=== PATIENT | female | born 1955 | race Caucasian/White ===

== ENCOUNTER → 2016-12-07 | Outpatient (CLI) | payer OTHER ==
[~2016-12-07] VITALS: Ht 167.6 cm; Wt 61.1 kg
[~2016-12-07] MED LIST: ASPI81TA11 PO; ATOR20TA15 PO; BENA20TA3 PO; NITR1SUB3 SL; OMEP20TA PO; PARO10TA2 PO; PROPOFOL 200 MG/20 ML AMP IV ONE
[2016-12-07 10:04] VITALS: BP 144/84; PULSE 70; RESP 16; TEMP 97.1; O2SAT 100
[2016-12-07 11:30] VITALS: BP 158/88; PULSE 73; RESP 16; O2SAT 100
--- NOTE | 2016-12-07 12:49 | EKG ---
Date Performed: 12/07/2016 Time Performed: 10:14:07 PTAGE: 61 years EKG: Sinus rhythm NONSPECIFIC T-WAVE ABNORMALITY BORDERLINE ECG NO PREVIOUS TRACING DOCTOR: Ethan Finley Interpretating Date/Time 12/07/2016 12:48:01
== END ==
LOC: HEND 09:16
PROVIDERS: ATTEND Internal Medicine Gastroenterology
DX: K29.70 Gastritis, unspecified, without bleeding (principal); K44.9 Diaphragmatic hernia without obstruction or gangrene; K57.30 Diverticulosis of large intestine without perforation or abscess without bleeding; R11.0 Nausea; R19.7 Diarrhea, unspecified; K63.5 Polyp of colon; K62.1 Rectal polyp; K64.8 Other hemorrhoids; K64.4 Residual hemorrhoidal skin tags; I10 Essential (primary) hypertension
CPT/HCPCS: 88305; 88312; 93005

== ENCOUNTER 2018-01-27 10:05 | Emergency (ER) | payer OTHER ==
[~2018-01-27] VITALS: Ht 167.6 cm; Wt 60.0 kg
[~2018-01-27 10:05] MED LIST changes: -ASPI81TA11 PO; +ASPI81TA23 PO; -NITR1SUB3 SL; -OMEP20TA PO; +OMEP20TA93 PO; -PROPOFOL 200 MG/20 ML AMP IV ONE
[2018-01-27 10:15] VITALS: BP 133/63; PULSE 65; RESP 16; TEMP 98.4; O2SAT 99
--- NOTE | 2018-01-27 11:12 | PD ---
HPI Chief Complaint: Injury Time Seen by Provider: 10:49 Travel History International Travel<30 days: No Contact w/Intl Traveler<30days: No Traveled to known affect area: No History of Present Illness HPI 62-year-old female with history of CVA with left-sided weakness, presents emergency department status post fall from tripping with injury to the left proximal forearm. Patient states she normally has decreased range of motion in this arm secondary to her stroke. She is now complaining of pain, and is concerned about possible fracture. Patient states no numbness or tingling in the distal extremity which is normally normal for her. Pain is currently 8 out of 10 and worse with movement. She denies any other injury currently. She has no known drug allergies. PFSH Past Medical History Hx Anticoagulant Therapy: Yes Cancer: No Cardiovascular Problems: Yes (HYPERCHOLESTEROLEMIA) Cerebrovascular Accident: Yes Diabetes: No Endocrine: No Genitourinary: No Hepatitis: No Hiatal Hernia: No Immune Disorder: No Musculoskeletal: No Neurologic: Yes (STROKE- LEFT ARM PARALYZED) Psychiatric: No Reproductive: No Respiratory: No Thyroid Disease: No Past Surgical History Abdominal Surgery: No AICD: No Cardiac Surgery: No Ear Surgery: No Endocrine Surgery: No Eye Surgery: No Genitourinary Surgery: No Gynecologic Surgery: Yes (HYSTERECTOMY) Joint Replacement: No Oral Surgery: No Pacemaker: No Thoracic Surgery: No Social History Alcohol Use: Yes Tobacco Use: No Substance Use: No Allergies-Medications (Allergen,Severity, Reaction): Coded Allergies: No Known Allergies (Unverified , 12/07/16) Reported Meds & Prescriptions Reported Meds & Active Scripts Active Tramadol (Tramadol HCl) 50 Mg Tab 50 Mg PO Q6H PRN Reported Ibgard (Peppermint Oil) 90 Mg Capdr...er DAILY Paroxetine (Paroxetine HCl) 10 Mg Tab 10 Mg PO DAILY Benazepril-Hydrochlorothiazide 20-12.5 Mg Tab 1 Tab PO DAILY Atorvastatin (Atorvastatin Calcium) 20 Mg Tab 20 Mg PO HS Aspirin EC (Aspirin) 81 Mg Tabdr 81 Mg PO DAILY Review of Systems Except as stated in HPI: all other systems reviewed are Neg General / Constitutional: No: Fever Eyes: No: Visual changes HENT: No: Headaches Cardiovascular: No: Chest Pain or Discomfort Respiratory: No: Shortness of Breath Gastrointestinal: No: Abdominal Pain Genitourinary: No: Dysuria Musculoskeletal: Positive: Myalgias, Arthralgias, Limited ROM, Pain Skin: No Rash Neurologic: No: Weakness Psychiatric: No: Depression Endocrine: No: Polydipsia Hematologic/Lymphatic: No: Easy Bruising Physical Exam Narrative GENERAL: Patient appears in mild distress per SKIN: Warm and dry. Normal color. Normal turgor. Patient has area of swelling , and bruising to the left proximal lateral forearm region. No abrasions or signs of abscess. HEAD: Atraumatic. Normocephalic. EYES: Pupils equal and round. No scleral icterus. No injection or drainage. ENT: No nasal bleeding or discharge. Mucous membranes pink and moist. NECK: Trachea midline. Supple and nontender CARDIOVASCULAR: Regular rate and rhythm. RESPIRATORY: No accessory muscle use. Clear to auscultation. Breath sounds equal bilaterally. GASTROINTESTINAL: Abdomen soft, non-tender, nondistended. Hepatic and splenic margins not palpable. MUSCULOSKELETAL: Extremities without clubbing, cyanosis, or edema. No obvious deformities. NEUROLOGICAL: Awake and alert. No obvious cranial nerve deficits. Motor grossly within normal limits. Five out of 5 muscle strength in the arms and legs except for the left arm which is decreased secondary to previous CVA. Patient walks with a cane due to the left-sided lower leg weakness. Normal speech. PSYCHIATRIC: Appropriate mood and affect; insight and judgment normal. Data Data Last Documented VS Vital Signs Date Time Temp Pulse Resp B/P (MAP) Pulse Ox O2 Delivery O2 Flow Rate FiO2 01/27/18 10:15 98.4 65 16 133/63 (86) 99 Orders Orders Elbow, Complete (4 Vws) (01/27/18 10:49) Forearm (2vws) (01/27/18 10:49) Ice/Cold Pack (01/27/18 10:49) Splinting (01/27/18 ) Sling And Swathe (01/27/18 ) [facility] Medical Decision Making Medical Screen Exam Complete: Yes Emergency Medical Condition: Yes Differential Diagnosis History CVA. Trip and fall. Contusion left forearm. Possible fracture. Narrative Course Patient is medically stable at time of exam. X-rays of the left forearm and elbow are ordered. X-rays show proximal radial fracture without significant displacement or angulation. Elbow is intact. Calls placed to Dr. Easton, the orthopedic on-call, and plan agreed upon. Patient is placed in a long-arm posterior splint on the left. Patient is placed in a splint by orthopedics. Patient is to keep the splint in place at all times until seen by orthopedic and follow-up. Patient is given tramadol 50 mg every 6 hours as needed pain She can take Tylenol extra strength as well. Patient should ice the area frequently as needed. Patient instructed to return if pain worsens as she is at risk for possible compartment syndrome. Diagnosis Primary Impression: Closed fracture of left proximal radius Qualified Codes: S52.102A - Unspecified fracture of upper end of left radius, initial encounter for closed fracture Referrals: Som Easton MD Patient Instructions: General Instructions, How to Use a Sling (GEN), Splint Care (ED) Additional Instructions: X-rays show proximal radial fracture without significant displacement or angulation. Elbow is intact. Calls placed to Dr. Easton, the orthopedic on-call, and plan agreed upon. Patient is placed in a long-arm posterior splint on the left. Patient is placed in a splint by orthopedics. Patient is to keep the splint in place at all times until seen by orthopedic and follow-up. Patient is given tramadol 50 mg every 6 hours as needed pain She can take Tylenol extra strength as well. Patient should ice the area frequently as needed. Patient instructed to return if pain worsens as she is at risk for possible compartment syndrome. Med/Other Pt SpecificInfo: Prescription(s) given Scripts Tramadol (Tramadol) 50 Mg Tab 50 MG PO Q6H Y for PAIN, #20 TAB 0 Refills Prov: Carina Galindo MD 01/27/18 Disposition: 01 DISCHARGE HOME Condition: Stable Anatoly Reynolds Jan 27, 2018 11:12
[2018-01-27] MEDS ORDERED: PEPP90CA (11:39)
[2018-01-27] MEDS ORDERED: TRAM50TA PO (11:52)
--- NOTE | 2018-01-27 11:57 | RADRPT ---
EXAM DATE/TIME: 01/27/2018 11:10 [facility] COMPARISON: No previous studies available for comparison. INDICATIONS : Left Elbow Pain after Fall MEDICAL HISTORY : Stroke. SURGICAL HISTORY : None. ENCOUNTER: Initial ACUITY: 2 days PAIN SCORE: 8/10 LOCATION: Left elbow FINDINGS: There is an acute mildly displaced fracture involving the proximal ulna. An elbow joint effusion is n oted. Osteopenia of the left elbow is noted. CONCLUSION: 1. Acute mildly displaced fracture involving the proximal ulna. 2. Elbow joint effusion. 3. Osteopenia. Rafal Mensah MD on January 27, 2018 at 11:53 Board Certified Radiologist. This report was verified electronically.
--- NOTE | 2018-01-27 11:58 | RADRPT ---
EXAM DATE/TIME: 01/27/2018 11:25 [facility] COMPARISON: No previous studies available for comparison. INDICATIONS : Left Foreaem Pain afer Fall MEDICAL HISTORY : Stroke. SURGICAL HISTORY : None. ENCOUNTER: Initial ACUITY: 2 days PAIN SCORE: 8/10 LOCATION: Left proximal Forearm FINDINGS: An acute mildly displaced fracture involving the proximal ulna is noted. Diffuse osteopenia is noted. CONCLUSION: 1. Acute mildly displaced fracture involving the proximal ulna. 2. Diffuse osteopenia. Rafal Mensah MD on January 27, 2018 at 11:55 Board Certified Radiologist. This report was verified electronically.
== END 2018-01-27 13:01 | disposition home or self-care (01) ==
LOC: NEPK 10:05
DX: S52.002A Unspecified fracture of upper end of left ulna, initial encounter for closed fracture (principal); W01.0XXA Fall on same level from slipping, tripping and stumbling without subsequent striking against object, initial encounter
CPT/HCPCS: 29105; 29240; 73080; 73090